=== PATIENT | female | born 1980 | race Caucasian/White ===

== ENCOUNTER 2019-03-19 18:20 | Emergency (ER) | payer BC ==
--- NOTE | 2019-03-19 19:50 | ER Document Report ---
HPI - HPI Time Seen by Provider: 03/19/19 19:45 Pain Level: 2 Notes: Patient is a 38-year-old female no significant past medical history who presents complaining of a burn to her right posterior medial lower leg x3 weeks. Patient states that she has been under the care of her family provider and they have tried some antibiotics as well as being on Silvadene cream. Patient states that she continues to have raw skin to the area and intermittent swelling to that are a. Patient states that she was on Bactrim once before when she had swelling which worked well for her. She has not scheduled appointment with wound clinic. She has not noticed any red streaks or purulent discharge. Denies drug allergies. Denies any prolonged immobilization, distance travel, recent surgery/trauma, personal cancer history, hormone use, smoking, or previous DVT/PE. Denies any headache, fever, neck pain, URI, sore throat, chest pain, palpitations, syncope, cough, shortness of breath, wheeze, dyspnea, abdominal pain, nausea/vomiting/diarrhea, urinary retention, dysuria, hematuria, loss of control of bowel or bladder, numbness/tingling, muscle paralysis/weakness, or rash. - ROS Systems Reviewed and Negative: Yes All other systems reviewed and negative - REPRODUCTIVE Reproductive: DENIES: : Past Medical History - Social History Smoking Status: Never Smoker Family History: Reviewed & Not Pertinent Vertical Provider Document - CONSTITUTIONAL Agree With Documented VS: Yes Notes: PHYSICAL EXAMINATION: GENERAL: Well-appearing, well-nourished and in no acute distress. LUNGS: Breath sounds clear to auscultation bilaterally and equal. No wheezes rales or rhonchi. HEART: Regular rate and rhythm without murmurs, rubs, gallops. Musculoskeletal: Rt LE: FROM to passive/active. Strength 5+/5. No bony tenderness. N/V intact distal. Extremities: No cyanosis, clubbing, or edema b/l. Peripheral pulses 2+. Capillary refill less than 3 seconds. Harika negative bilaterally. NEUROLOGICAL: Cranial nerves grossly intact. Normal speech, normal gait. Normal sensory, motor exams PSYCH: Normal mood, normal affect. SKIN: Rt medial posterior lower leg: there is an appearance of subacute 2nd degree partial thickness burn noted w/o any necrosis, induration, fluctuance, streaks, or purulence. + tenderness and mild swelling associated to the ankle/wound. Course - Re-evaluation Re-evalutation: 03/19/19 19:48 Patient is an afebrile, well-hydrated, 38-year-old female who presents with an ongoing skin burn to her right lower extremity. There may be a mild component of cellulitis at this time. Vitals are acceptable without significant tachycardia, tachypnea, or hypoxia. PE is otherwise unremarkable for any neurovascular, mass, obvious tendon/leg rupture, obvious fracture/ossification, septic joint, DVT. Patient is nontoxic-appearing and is able to tolerate p.o. without difficulty. Patient does have Silvadene on her person. I will be sending her home with a prescription for Bactrim. Conservative measures for symptoms otherwise. Recheck with your PCM in 2 to 3 days. Schedule appointment with wound clinic. Return to the ED with any other worsening/concerning symptoms. Patient is in agreement. - Vital Signs Vital signs: Temp Pulse Resp BP Pulse Ox 98.4 F 83 16 116/76 99 03/19/19 18:25 03/19/19 18:25 03/19/19 18:25 03/19/19 18:25 03/19/19 18:25 Discharge - Discharge Clinical Impression: Burn of leg, right Qualifiers: Encounter type: subsequent encounter Burn degree: partial thickness (2nd degree) Qualified Code(s): T24.201D - Burn of second degree of unspecified site of right lower limb, except ankle and foot, subsequent encounter Condition: Stable Disposition: HOME, SELF-CARE Instructions: Silvadene Cream ([facility]), Soap Cleansing ([facility]), Ashley ([facility]) Additional Instructions: Keep the skin clean Wash with soap and water Tylenol/ibuprofen if needed Triple antibiotic ointment daily Take medication as directed Monitor for any worsening symptoms Recheck with your PCM in 2-3 days Schedule an appointment with wound clinic Return to the ED with any worsening symptoms and/or development of fever, headache, chest pain, palpitations, syncope, shortness of breath, trouble breathing, abdominal pain, n/v/d, abscess, purulent discharge, red streaks, worsening swelling, or other worsening symptoms that are concerning to you. Prescriptions: Sulfamethoxazole/Trimethoprim [Bactrim Ds Tablet] 1 each PO BID #20 tablet Referrals: Wound Care [Provider Group] - Follow up in 3-5 days
[2019-03-19 20:29] VITALS: BP 111/73
== END 2019-03-19 20:29 | disposition home or self-care (01) ==
LOC: ER 18:20
DX: T24.201D Burn of second degree of unspecified site of right lower limb, except ankle and foot, subsequent encounter (principal); X08.8XXD Exposure to other specified smoke, fire and flames, subsequent encounter
CPT/HCPCS: 99283

== ENCOUNTER → 2020-09-21 | Outpatient (CLI) | payer OTHER ==
--- NOTE | 2020-09-21 16:34 | RADIOLOGY REPORT (SQ) ---
EXAM DESCRIPTION: L SPINE WHOLE IMAGES COMPLETED DATE/TIME: 09/21/2020 3:23 pm REASON FOR STUDY: (M54.5)LOW BACK PAIN M54.5 LOW BACK PAIN COMPARISON: None. NUMBER OF VIEWS: Five views including obliques. TECHNIQUE: AP, lateral, oblique, and sacral radiographic images acquired of the lumbar spine. LIMITATIONS: None. FINDINGS: MINERALIZATION: Normal. SEGMENTATION: 5 [id number] lumbar vertebral bodies. ALIGNMENT: Minimal levoconvex lumbar curvature. VERTEBRAE: Maintained height. No fracture or worrisome bone lesion. DISCS: Preserved height. No significant osteophytes or end plate irregularity. POSTERIOR ELEMENTS: Pedicles and facets are intact. No pars defect or posterior arch defects. HARDWARE: None in the spine. PARASPINAL SOFT TISSUES: Scattered pelvic phleboliths. PELVIS: Intact as visualized. No fractures or worrisome bone lesions. SI joints intact. OTHER: No other significant finding. IMPRESSION: No evidence of acute bony abnormality of the lumbar spine. No significant degenerative change. Minimal levoconvex thoracolumbar curvature. TECHNICAL DOCUMENTATION: JOB ID: [id number] 2010 [employer]- All Rights Reserved Reading location - IP/workstation name: [email or web address]
== END ==
LOC: RAD 15:04
PROVIDERS: ATTEND Nurse Practitioner Family
DX: M54.5 Low back pain (principal)
CPT/HCPCS: 72110